=== PATIENT | female | born 2005 | race Caucasian/White ===

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

== ENCOUNTER → 2025-02-25 13:36 | Outpatient (BNVA) | payer MEDICAID, SELFPAY | DX: R52 Pain, unspecified (principal) | CPT/HCPCS: 87400; 87426 ==